=== PATIENT | male | born 1950 | race Caucasian/White ===

== ENCOUNTER 2016-10-07 15:20 | Outpatient (CLI) | payer BC, MEDICARE, OTHER | END 2016-10-07 15:21 | disposition critical access hospital (66) | LOC: EMS 15:20 | PROVIDERS: ATTEND Surgery | DX: M25.512 Pain in left shoulder (principal); W17.89XA Other fall from one level to another, initial encounter; Y93.89 Activity, other specified | CPT/HCPCS: A0425; A0429 ==

== ENCOUNTER 2016-10-07 15:51 | Emergency (ER) | payer BC, MEDICARE, OTHER ==
[2016-10-07 15:57] VITALS: BP 160/98
--- NOTE | 2016-10-07 15:59 | ED Physician Documentation ---
PD HPI Fall - Stated complaint Stated Complaint: 6 FT FALL - LEFT SCAPULA AND NECK PAIN - Chief complaint Chief Complaint: Trauma Ext - History obtained from History obtained from: Patient - History of Present Illness Mechanism of injury: Lost balance Fall distance: 5 to 10ft (he was on stack of lumber and fell, landing onto left shoulder. Pain in shoulder.) Timing - onset: Today Injury(ies) location: Left Uppper Extremity (shoulder and left side of neck). No: Head, Chest, Abdomen Associated symptoms: Neck pain (left side). No: LOC, AMS, Weakness, Paresthesias Worsens with: Movement, Palpation Contributing factors: Anticoagulated. No: Intoxicated Similar symptoms before: Has not had sx before Recently seen: Not recently seen Review of Systems Constitutional: denies: Fever, Chills Nose: denies: Rhinorrhea / runny nose, Congestion Throat: denies: Sore throat Cardiac: denies: Chest pain / pressure Respiratory: denies: Cough GI: denies: Abdominal Pain, Nausea, Vomiting Neurologic: denies: Confused, Altered mental status, Headache, LOC PD PAST MEDICAL HISTORY - Past Medical History Endocrine/Autoimmune: None Musculoskeletal: None - Present Medications Home Medications: Ambulatory Orders Medication Instructions Recorded Confirmed HYDROcod/ACETAM 5/325 [[place] 5/325] 1 tab PO Q6H PRN #20 tablet 10/07/16 Lisinopril 10 mg pe PO DAILY 10/07/16 10/07/16 Warfarin [Coumadin] 7.5 mg pe PO DAILY 10/07/16 10/07/16 - Allergies Allergies/Adverse Reactions: Allergies Allergy/AdvReac Type Severity Reaction Status Date / Time No Known Drug Allergies Allergy Verified 10/07/16 15:57 PD ED PE NORMAL - Vitals Vital signs reviewed: Yes - General General: Alert and oriented X 3, Well developed/nourished - HEENT HEENT: Atraumatic - Neck Neck: Supple, no meningeal sign, No bony TTP, Other (tender left lateral muscles.) - Cardiac Cardiac: RRR, No murmur - Respiratory Respiratory: Clear bilaterally - Abdomen Abdomen: Soft, Non tender - Derm Derm: Normal color, Warm and dry - Extremities Extremities: Other (left shoulder with rise at distal clavicle c/w AC separation. No lacerations. Proximal humerus not tender. ) - Neuro Neuro: Alert and oriented X 3, No motor deficit, No sensory deficit, Normal speech Results - Vitals Vitals: Oxygen O2 Source Room air - Labs Labs: Laboratory Tests 10/07/16 10/07/16 10/07/16 16:03 16:03 16:03 WBC 6.7 RBC 4.87 Hgb 15.2 Hct 45.5 MCV 93.5 MCH 31.3 H MCHC 33.4 RDW 14.1 Plt Count 226 MPV 8.3 Neut # 4.1 Lymph # 1.5 [place] # 0.8 Eos # 0.2 Baso # 0.1 Absolute Nucleated RBC 0.00 Nucleated RBCs 0.0 PT 17.8 H INR 1.6 H Sodium 138 Potassium 4.1 Chloride 106 Carbon Dioxide 23 Anion Gap 9.0 BUN 22 H Creatinine 1.1 Estimated GFR (MDRD) 67 L Glucose 111 H Calcium 9.4 Total Bilirubin 0.7 AST 24 ALT 20 Alkaline Phosphatase 66 Total Protein 8.4 H Albumin 4.4 Globulin 4.0 Albumin/Globulin Ratio 1.1 Lipase 42 - Rads (name of study) left shoulder Radiology: Prelim report reviewed, EMP read contemporaneously (AC separation) head CT Radiology: Prelim report reviewed, EMP read contemporaneously (no acute process) PD MEDICAL DECISION MAKING - ED course Complexity details: reviewed results, considered differential, d/w patient Departure - Departure Disposition: 01 Home, Self Care Clinical Impression: Anticoagulant long-term use Accidental fall Qualifiers: Encounter type: initial encounter Qualified Code(s): W19.XXXA - Unspecified fall, initial encounter Acromioclavicular separation Qualifiers: Encounter type: initial encounter Laterality: left Qualified Code(s): S43.102A - Unspecified dislocation of left acromioclavicular joint, initial encounter Record reviewed to determine appropriate education?: Yes Instructions: ED Sprain AC Joint, Treatment for Shoulder Separation Follow-Up: Reji Driscoll MD [Primary Care Provider] - Edwige Cruz MD [Provider Admit Priv/Credential] - Prescriptions: HYDROcod/ACETAM 5/325 [[place] 5/325] 1 tab PO Q6H PRN #20 tablet PRN Reason: Pain Comments: Sling for left fourth shoulder for 3-4 weeks. As the pain improves, start during gentle range of motion so it does not stiffen up too much. No overhead reaching, push pull, lifting with it however for a month. Follow-up with your family doctor or orthopedics in about 1 and half weeks for recheck to see how it is healing. Continue usual medications. Tylenol if needed for pain. Add hydrocodone if needed. Forms: Activity restrictions Discharge Date/Time: 10/07/16 17:35
[2016-10-07] MEDS ORDERED: ONDANSETRON 4 MG/2 ML VIAL IVP STA (16:01)
[2016-10-07] MEDS ORDERED: HYDROmorphone 1 MG/ML SYRINGE IVP STA (16:01)
[2016-10-07 16:08] LABS: BASOPHILS # (AUTO) 0.1 10^3/uL (0.0-0.1); BASOPHILS % (AUTO) 1.2 %; EOSINOPHILS # (AUTO) 0.2 10^3/uL (0.0-0.7); EOSINOPHILS % (AUTO) 2.9 %; HCT - HEMATOCRIT 45.5 % (42.0-52.0); HGB - HEMOGLOBIN 15.2 g/dL (14.0-18.0); LYMPHOCYTES # (AUTO) 1.5 10^3/uL (1.5-3.5); LYMPHOCYTES % (AUTO) 22.7 %; MEAN CORPUSCULAR HEMOGLOBIN 31.3 pg (27.0-31.0); MEAN CORPUSCULAR HGB CONC 33.4 g/dL (32.0-36.0); MEAN CORPUSCULAR VOLUME 93.5 fL (80.0-94.0); MEAN PLATELET VOLUME 8.3 fL (7.4-11.4); MONOCYTES # (AUTO) 0.8 10^3/uL (0.0-1.0); MONOCYTES % (AUTO) 12.4 %; NEUTROPHILS # (AUTO) 4.1 10^3/uL (1.5-6.6); NEUTROPHILS % (AUTO) 60.8 %; RED BLOOD COUNT 4.87 10^6/uL (4.70-6.10); RED CELL DISTRIBUTION WIDTH 14.1 % (12.0-15.0); UNCORRECTED WHITE BLOOD COUNT 6.7 x10^3/uL; WHITE BLOOD COUNT 6.7 x10^3/uL (4.8-10.8)
[2016-10-07 16:16] LABS: INR 1.6 (0.8-1.2); PT - PROTHROMBIN TIME 17.8 secs (9.9-12.6)
[2016-10-07 16:21] LABS: ALBUMIN/GLOBULIN RATIO 1.1 (1.0-2.2); BILIRUBIN,TOTAL 0.7 mg/dL (0.2-1.0); CALCIUM 9.4 mg/dL (8.5-10.3); CREATININE 1.1 mg/dL (0.6-1.2); POTASSIUM 4.1 mmol/L (3.5-5.0); TOTAL PROTEIN 8.4 g/dL (6.7-8.2)
--- NOTE | 2016-10-07 16:55 | XRAY Preliminary Report ---
Exam: XR Shoulder 3 View LT IMPRESSION: 1. Left AC joint separation, probably acute. Correlate clinically. 2. Moderate degenerative changes glenohumeral joint. [facility] SITE ID: [id number]
--- NOTE | 2016-10-07 16:58 | CT Preliminary Report ---
Exam: CT Head W/O IMPRESSION: Generalized age-related cortical atrophic changes without evidence of acute intracranial abnormality. [facility] SITE ID: [id number]
--- NOTE | 2016-10-07 17:02 | CT Report ---
EXAM: CT HEAD EXAM DATE: 10/07/2016 04:44 p.m. CLINICAL HISTORY: Fall with mild head impact, on coumadin. Headache. COMPARISON: None. TECHNIQUE: Multiaxial CT images were obtained from the foramen magnum to the vertex. IV contrast: Non e. Reformats: Coronal. In accordance with CT protocol optimization, one or more of the following dose reduction techniques w ere utilized for this exam: automated exposure control, adjustment of mA and/or KV based on patient s ize, or use of iterative reconstructive technique. FINDINGS: Parenchyma: No intraparenchymal hemorrhage. No evidence of mass, midline shift, or CT findings of acu te infarction. Aviles-white differentiation is distinct. Extraaxial Spaces: Normal for age. No subdural or epidural collections identified. Ventricles: The ventricles and cortical sulci are enlarged, consistent with age-related tissue loss. Sinuses: Imaged paranasal sinuses, orbits, and mastoids show no significant abnormality. Bones: No evidence of fracture or calvarial defect. Other: Diffuse chronic microangiopathic white matter changes are evident. IMPRESSION: Generalized age-related cortical atrophic changes without evidence of acute intracranial abnormality. [facility] Referring Provider Line: [phone] SITE ID: [id number]
--- NOTE | 2016-10-07 17:02 | XRAY Report ---
EXAM: LEFT SHOULDER RADIOGRAPHY EXAM DATE: 10/07/2016 04:45 p.m. CLINICAL HISTORY: Fall with shoulder/scapular injury and pain. COMPARISON: None. TECHNIQUE: 3 views. FINDINGS: Bones: Normal. No fracture or bone lesion. Joints: 15 mm superior elevation left clavicle relative to the type II acromion. Moderate narrowing of the glenohumeral joint with minimal subcortical sclerosis of the rim and viola l head. Normal caliber subacromial space. Soft tissues: Contour abnormality over the left AC joint. Edema subjacent to the distal clavicle. IMPRESSION: 1. Left AC joint separation, probably acute. Correlate clinically. 2. Moderate degenerative changes of the glenohumeral joint. [facility] Referring Provider Line: [phone] SITE ID: [id number]
== END 2016-10-07 17:35 | disposition home or self-care (01) ==
LOC: ED 15:51
DX: S43.102A Unspecified dislocation of left acromioclavicular joint, initial encounter (principal); W17.89XA Other fall from one level to another, initial encounter; Z79.01 Long term (current) use of anticoagulants
CPT/HCPCS: 70450; 73030; 80053; 83690; 85025; 85610; 96374; 96375; 99284; J1170